=== PATIENT | female | born 1945 | race Asian ===

== ENCOUNTER 2023-05-11 15:20 | Emergency (ER) | payer SELFPAY ==
[~2023-05-11] VITALS: Ht 157.5 cm; Wt 45.4 kg
[2023-05-11 15:31] VITALS: BP_SYST 163; PULSE 94; RESP 16; TEMP 98.7; O2SAT 98
[2023-05-11] MEDS ORDERED: ACET-2634 PO (16:16)
[2023-05-11 16:33] VITALS: BP_SYST 163; PULSE 94; RESP 16; TEMP 98.7; O2SAT 98
== END 2023-05-11 16:30 | disposition home or self-care (01) ==
LOC: SED 15:20
DX: S62.615A Displaced fracture of proximal phalanx of left ring finger, initial encounter for closed fracture (principal); Z79.899 Other long term (current) drug therapy; W49.04XA Ring or other jewelry causing external constriction, initial encounter; Y93.89 Activity, other specified; Y92.89 Other specified places as the place of occurrence of the external cause; Y99.8 Other external cause status
CPT/HCPCS: 99283